=== PATIENT | female | born 1990 | race Caucasian/White ===

== ENCOUNTER 2020-01-12 14:15 | Emergency (ER) | payer OTHER ==
[2020-01-12 14:28] VITALS: BP 101/59; BMI 26.0
--- NOTE | 2020-01-12 14:35 | PDOC ---
Rapid Medical Evaluation Chief Complaint: Labor Assessment Time Seen by Provider: 01/12/20 14:30 Medical Evaluation: Allergies Allergy/AdvReac Type Severity Reaction Status Date / Time No Known Allergies Allergy Verified 01/12/20 14:21 Vital Signs Temp Pulse Resp BP Pulse Ox 98.5 F 88 16 101/59 L 99 01/12/20 14:22 01/12/20 14:22 01/12/20 14:22 01/12/20 14:22 01/12/20 14:22 01/12/20 14:34 The patient is a 29-year-old female G1, P0, currently 27 weeks , presents to the ER for clear fluid coming from the vagina. She states this started today. She states that this is her first and has been uncomplicated until now. Denies abdominal pain and cramping. 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 Doran with [facility]. Exam: Defer vaginal exam to L&D, no acute distress Plan: Send to L&D for monitoring and possible PROM Discharge Disposition - Diagnosis Vaginal discharge during in third trimester - Referrals - Patient Instructions - Post Discharge Activity
[2020-01-12 15:59] VITALS: PULSE 83; TEMP 98.4
--- NOTE | 2020-01-12 16:24 | PD.OB.PROG ---
Past Medical History - Primary Care Physician Documenting Provider Type: Attending - Admission Chief Complaint: Leakge of Fluid History of Present Illness: 29yo @ 27+wks here for leakage of fluid x 1. Patient urinated last night and upon standing from the toilet, noticed a continued trickle of fluid. None since. No bleeding. No discharge. No cramping. +FM Did not come in before, called her doctor's office this morning and advised to come to the L&D for evaluation [facility], next visit 01/21 uncomplicated per pt History Source: Patient Limitations to Obtaining History: Language Barrier Patient Type: New - Nursing Documentation Maternal Triage Index: Maternal Triage Index ( Priority 2, Urgent MFTI) Maternal Triage Index ( Priority 2, Urgent MFTI) Nursing Documentation Reviewed: Yes - Past Medical History PROTOZOOLOGY TEACHER: Denies/None Cardio/Vascular: Denies/None Pulmonary: Denies/None Gastrointestinal: Denies/None Hepatobiliary: Denies/None Renal/: Denies/None Reproductive: Denies/None ...: 1 ...Para: 0 ...Term: 0 ...: 0 ...Spon : 0 ...Induced : 0 ...Living Children: 0 ... Weeks Gestation by Dates: 27.3 ...EDC by Dates: 04/09/20 Heme/Onc: Denies/None - Past Surgical History Past Surgical History: Yes: None - Smoking History Smoking history: Never smoked - Alcohol/Substance Use Hx Alcohol Use: No History of Substance Use: reports: None - Social History Usual Living Arrangement: Alone Do you think of yourself as: Straight/Heterosexual ADL: Independent History of Recent Travel: No Review of Systems - Review of Systems Gastrointestinal: reports: No Symptoms Genitourinary: reports: No Symptoms Physical Exam - Obstetrical Vital Signs: Vital Signs Temperature 98.4 F 01/12/20 15:44 Pulse Rate 83 01/12/20 15:44 Respiratory Rate 20 01/12/20 15:44 Blood Pressure 101/59 L 01/12/20 14:22 O2 Sat by Pulse Oximetry (%) 99 01/12/20 14:22 - Abdominal Exam/OB Number of Fetuses: Single Contractions: No Monitor Mode: External Heart Rate Location: [facility] Category: I (Reactive for GA FHT) Accelerations: Non-Uniform Decelerations: None - Vaginal Exam/OB Vaginal Exam Deferred: Yes Vaginal Bleeding: No Speculum Exam: Yes (no fluid noted; nitrazine negative) Dilatation (cm): 0 Effacement (%): 0 Nitrazine Test: Negative Station: -3 - Physical Exam Edema: No Assessment/Plan 29yo @ 27+wks here with LOF No evidence of PPROM No evidence of PTL Reassuring FHT D/C to home Gabby Valenzuela MD
[2020-01-15 11:38] LABS: POC NITRAZINE NEG
== END 2020-01-12 16:30 | disposition home or self-care (01) ==
LOC: JER 14:15
DX: O34.63 Maternal care for abnormality of vagina, third trimester (principal)
CPT/HCPCS: 83986-QW; 99284-25

== ENCOUNTER 2020-04-17 08:05 | Inpatient (IN) | payer OTHER ==
[~2020-04-17 08:05] MED LIST: AMPICILLIN - 2 GM in SODIUM CHLORIDE 100 ML IVPB ONE; DINOPROSTONE 10 MG VAGINAL SUPPOSITORY VG ONE
[2020-04-17 09:09] LABS: BASO % 0.4 % (0-2.0); EOS % 1.1 % (0-4.5); HEMATOCRIT 35.3 % (32.4-45.2); HEMOGLOBIN 12.1 GM/dL (10.7-15.3); LYMPH % 26.8 % (8-40); MCH 31.8 pg (25.7-33.7); MCHC 34.4 g/dl (32.0-36.0); MEAN CELL VOLUME 92.3 fl (80-96); MONO % 8.4 % (3.8-10.2); NEUT % 63.3 % (42.8-82.8); PLATELET COUNT 198 K/MM3 (134-434); RBC 3.83 M/mm3 (3.60-5.2); RDW 12.9 % (11.6-15.6)
[2020-04-17 09:18] LABS: INR 0.94 (0.83-1.09); PROTHROMBIN TIME (PATIENT) 11.6 SEC (9.7-13.0)
[2020-04-17 09:21] LABS: ACTIVATED PTT 27.8 SECONDS (25.2-36.5)
[2020-04-17 09:40] LABS: BLOOD UREA NITROGEN 10.9 mg/dL (7-18); CALCIUM 9.1 mg/dL (8.5-10.1)
[2020-04-17 09:44] LABS: CREATININE 0.7 mg/dL (0.55-1.3)
[2020-04-17 10:44] VITALS: BMI 36.0
[2020-04-17] MEDS: ELECTROLYTE-148 SOLN 1,000 ML IV SCH (11:00)
[2020-04-17] MEDS ORDERED: AMPICILLIN SODIUM 2 GM VIAL ONE (11:06)
[2020-04-17] MEDS: AMPICILLIN - 1 GM in SODIUM CHLORIDE 100 ML IVPB SCH ×5 (12:00→22:55)
[2020-04-17] MEDS ORDERED: ELECTROLYTE-148 SOLN 1,000 ML IV SCH (13:15)
[2020-04-17] MEDS ORDERED: AMPICILLIN SODIUM 1 GM VIAL ONE ×3 (15:00→22:53)
[2020-04-17] MEDS ORDERED: PROMETHAZINE HCL 25 MG/1 ML VIAL ONE (15:47)
[2020-04-17] MEDS ORDERED: BUTORPHANOL TARTRATE 2 MG/ML VIAL ONE (15:47)
[2020-04-17] MEDS ORDERED: OXYTOCIN 30 UNITS in 0.9% NS 30 UNIT/500 ML INFUS.BAG IVPB ONE (15:47)
[2020-04-17] MEDS ORDERED: PROMETHAZINE HCL 25 MG/1 ML VIAL IVPB ONE (15:57)
[2020-04-17] MEDS ORDERED: BUTORPHANOL TARTRATE 2 MG/ML VIAL IVPB ONE (15:57)
[2020-04-17] MEDS: OXYTOCIN 30 UNITS in 0.9% NS 30 UNIT/500 ML INFUS.BAG IVPB SCH (16:30)
[2020-04-17] MEDS ORDERED: PCA PUMP NR ONE (20:59)
[2020-04-17] MEDS ORDERED: FENTANYL/BUPIVACAINE/NS/PF - PCEA - 50 ML DISP.SYRIN EP ONE (20:59)
[2020-04-17] MEDS ORDERED: BUPIVACAINE HCL/PF 0.25% (2.5MG/ML) 10 ML VIAL ONE (21:12)
[2020-04-17] MEDS: FENTANYL/BUPIVACAINE/NS/PF - PCEA - 50 ML DISP.SYRIN EP SCH (21:25)
[2020-04-17] MEDS ORDERED: NALOXONE HCL 0.4 MG/ML VIAL IVPUSH PRN (21:29)
[2020-04-18] MEDS ORDERED: AMPICILLIN SODIUM 1 GM VIAL ONE (01:59)
[2020-04-18] MEDS: ELECTROLYTE-148 SOLN 1,000 ML IV SCH ×2 (02:00→08:05)
[2020-04-18] MEDS: AMPICILLIN - 1 GM in SODIUM CHLORIDE 100 ML IVPB SCH ×4 (02:05→08:00)
[2020-04-18] MEDS ORDERED: FENTANYL/BUPIVACAINE/NS/PF - PCEA - 50 ML DISP.SYRIN EP ONE (02:07)
[2020-04-18] MEDS ORDERED: CITRIC ACID/SODIUM CITRATE 30 ML UNIT-DOSE CUP PO ONE (03:42)
[2020-04-18] MEDS ORDERED: LIDO 2%/EPI 1:200000 PRESRVFRE (20 ML SDVIAL) ONE (04:28)
[2020-04-18] MEDS ORDERED: morphine SULFATE/PF 1 MG/2 ML (2cc Syringe - QUVA) ONE ×2 (04:29)
[2020-04-18] MEDS ORDERED: BENZOCAINE 20% 57 GM BOTTLE TP PRN (04:43)
[2020-04-18] MEDS ORDERED: BENZOCAINE 28 GM HEMORRHOIDAL OINTMENT TP PRN (04:43)
[2020-04-18] MEDS ORDERED: WITCH HAZEL 50% (TUCKS) 40 PAD/JAR PAD TP PRN (04:43)
[2020-04-18] MEDS ORDERED: oxyCODONE HCL 5 MG TABLET PO PRN (04:43)
[2020-04-18] MEDS ORDERED: METHYLERGONOVINE MALEATE 0.2 MG/1 ML AMP IM PRN (04:43)
[2020-04-18] MEDS ORDERED: OXYTOCIN 20 UNITS in 0.9% NS 20 UNIT/1,000 ML INFUS.BAG IV ONE (06:04)
[2020-04-18] MEDS: OXYTOCIN 20 UNITS in 0.9% NS 20 UNIT/1,000 ML INFUS.BAG IV SCH ×2 (06:05→13:26)
[2020-04-18] MEDS ORDERED: IBUPROFEN 800 MG/8 ML IJ IVPB ONE (06:54)
[2020-04-18] MEDS: IBUPROFEN 800 MG/8 ML IJ IVPB PRN ×2 (06:55→17:40)
[2020-04-18] MEDS: ACETAMINOPHEN 325 MG TABLET (FP) PO PRN (08:14)
[2020-04-18 08:28] LABS: POC NITRAZINE POS
[2020-04-18] MEDS: PRENATAL VITAMINS W/ FOLIC ACID TABLET (FP) PO SCH (13:20)
[2020-04-18] MEDS: FERROUS SO4 325 MG TABLET (FP) PO SCH ×2 (13:25→22:36)
[2020-04-18] MEDS: SIMETHICONE 80 MG TAB.CHEW (FP) PO PRN (17:41)
[2020-04-19] MEDS: SIMETHICONE 80 MG TAB.CHEW (FP) PO PRN ×3 (04:33→21:03)
[2020-04-19] MEDS: ACETAMINOPHEN 325 MG TABLET (FP) PO PRN ×3 (04:33→21:05)
[2020-04-19] MEDS ORDERED: BISACODYL 10 MG SUPP.RECT RC PRN (04:43)
[2020-04-19 08:35] LABS: BASO % 0.2 % (0-2.0); EOS % 0.1 % (0-4.5); HEMATOCRIT 28.7 % (32.4-45.2); HEMOGLOBIN 9.7 GM/dL (10.7-15.3); MCH 31.8 pg (25.7-33.7); MCHC 33.9 g/dl (32.0-36.0); MEAN CELL VOLUME 93.8 fl (80-96); MEAN PLT VOLUME 9.2 fl (7.5-11.1); NEUT % 83.7 % (42.8-82.8); PLATELET COUNT 155 K/MM3 (134-434); RBC 3.07 M/mm3 (3.60-5.2); RDW 12.9 % (11.6-15.6); WHITE BLOOD COUNT 15.6 K/mm3 (4.0-10.0)
[2020-04-19] MEDS: IBUPROFEN 600 MG TABLET (FP) PO PRN ×2 (09:10→21:04)
[2020-04-19] MEDS: FERROUS SO4 325 MG TABLET (FP) PO SCH ×2 (12:39→21:03)
[2020-04-19] MEDS: PRENATAL VITAMINS W/ FOLIC ACID TABLET (FP) PO SCH (12:39)
[2020-04-19] MEDS: OXYTOCIN 30 UNITS in 0.9% NS 30 UNIT/500 ML INFUS.BAG IVPB SCH (19:07)
[2020-04-19] MEDS: OXYTOCIN 20 UNITS in 0.9% NS 20 UNIT/1,000 ML INFUS.BAG IV SCH (19:07)
[2020-04-19] MEDS: FENTANYL/BUPIVACAINE/NS/PF - PCEA - 50 ML DISP.SYRIN EP SCH (19:07)
[2020-04-19] MEDS: ELECTROLYTE-148 SOLN 1,000 ML IV SCH (19:08)
[2020-04-20] MEDS: IBUPROFEN 600 MG TABLET (FP) PO PRN (08:19)
[2020-04-20] MEDS: FERROUS SO4 325 MG TABLET (FP) PO SCH ×2 (08:20→09:05)
[2020-04-20] MEDS: PRENATAL VITAMINS W/ FOLIC ACID TABLET (FP) PO SCH ×2 (08:20→09:05)
[2020-04-20] MEDS: ACETAMINOPHEN 325 MG TABLET (FP) PO PRN (08:20)
[2020-04-20 09:02] VITALS: BP 116/67; PULSE 76; TEMP 98.5
== END 2020-04-20 13:15 | disposition home or self-care (01) | DRG 540 ==
LOC: JLDR 08:05 → J3W 04-18 08:01
PROVIDERS: ADMIT Obstetrics & Gynecology; ATTEND Obstetrics & Gynecology
PROC: 3E0P7VZ Introduction of Hormone into Female Reproductive, Via Natural or Artificial Opening (ICD-10-PCS; 2020-04-17)
PROC: 10907ZC Drainage of Amniotic Fluid, Therapeutic from Products of Conception, Via Natural or Artificial Opening (ICD-10-PCS; 2020-04-17)
PROC: 10D00Z1 Extraction of Products of Conception, Low, Open Approach (ICD-10-PCS; principal; 2020-04-18)
DX: O48.0 Post-term pregnancy (principal); O77.9 Labor and delivery complicated by fetal stress, unspecified; O90.81 Anemia of the puerperium; D64.9 Anemia, unspecified; O99.824 Streptococcus B carrier state complicating childbirth; Z3A.41 41 weeks gestation of pregnancy; Z37.0 Single live birth
CPT/HCPCS: 36415; 80048; 83986-QW; 85025; 85610; 85730; 86780; 86850; 86900; 86901; 88307-TC

== ENCOUNTER 2022-02-20 08:57 | Inpatient (IN) | payer OTHER ==
[2022-02-20] MEDS ORDERED: CITRIC ACID/SODIUM CITRATE 30 ML UNIT-DOSE CUP PO ONE (09:42)
[2022-02-20] MEDS: ELECTROLYTE-148 SOLN 1,000 ML IV SCH (10:00)
[2022-02-20 10:18] VITALS: BMI 28.3
[2022-02-20] MEDS ORDERED: morphine SULFATE/PF 1 MG/2 ML (2cc Syringe - QUVA) ONE (10:57)
[2022-02-20] MEDS ORDERED: morphine SULFATE/PF 1 MG/2 ML (2cc Syringe - QUVA) SPIN ONE (11:09)
[2022-02-20] MEDS ORDERED: KETAMINE HCL 500 MG/10 ML VIAL ONE (11:21)
[2022-02-20] MEDS ORDERED: PROPOFOL 20 ML ONE ×2 (11:22→12:02)
[2022-02-20] MEDS ORDERED: MIDAZOLAM HCL 2 MG/2 ML SINGLE DOSE VIAL ONE (11:39)
[2022-02-20] MEDS ORDERED: ACETAMINOPHEN 325 MG TABLET (FP) PO PRN (12:23)
[2022-02-20] MEDS ORDERED: ONDANSETRON 4 MG/2 ML VIAL IVPUSH PRN (12:23)
[2022-02-20] MEDS ORDERED: HYDROmorphone *PCA* 10MG/50ML DISP.SYRIN PCA SCH (12:30)
[2022-02-20] MEDS ORDERED: OXYTOCIN 20 UNITS in 0.9% NS 20 UNIT/1,000 ML INFUS.BAG IV ONE (12:42)
[2022-02-20] MEDS ORDERED: HYDROmorphone *PCA* 10MG/50ML DISP.SYRIN ONE (12:54)
[2022-02-20] MEDS ORDERED: ACETAMINOPHEN INJECTION 100 ML IVPB ONE (13:18)
[2022-02-20] MEDS ORDERED: ACETAMINOPHEN 1000 MG/100 ML BAG IVPB ONE (13:47)
[2022-02-21] MEDS: ELECTROLYTE-148 SOLN 1,000 ML IV SCH ×2 (03:50→21:36)
[2022-02-21] MEDS ORDERED: oxyCODONE HCL 5 MG TABLET PO PRN ×2 (11:19)
[2022-02-21] MEDS ORDERED: ACETAMINOPHEN 1000 MG/100 ML BAG IVPB PRN (14:00)
[2022-02-21] MEDS: IBUPROFEN 600 MG TABLET (FP) PO PRN (20:48)
[2022-02-21] MEDS: SENNOSIDES 8.6MG TABLET (FP) PO SCH (21:35)
[2022-02-22] MEDS: IBUPROFEN 600 MG TABLET (FP) PO PRN (03:40)
[2022-02-22] MEDS: SENNOSIDES 8.6MG TABLET (FP) PO SCH (11:07)
[2022-02-22 11:56] VITALS: BP 112/73; PULSE 87; RESP 16; TEMP 98.7
== END 2022-02-22 12:08 | disposition home or self-care (01) | DRG 540 ==
LOC: JLDR 08:57 → J3W 14:30
PROVIDERS: ADMIT Obstetrics & Gynecology; ATTEND Obstetrics & Gynecology
PROC: 10D00Z1 Extraction of Products of Conception, Low, Open Approach (ICD-10-PCS; principal; 2022-02-20)
DX: O82 Encounter for cesarean delivery without indication (principal); O69.81X0 Labor and delivery complicated by cord around neck, without compression, not applicable or unspecified; Z3A.40 40 weeks gestation of pregnancy; Z37.0 Single live birth
CPT/HCPCS: 36415; 80053; 85025; 85610; 85730; 86780; 86850; 86900; 86901; 88307-TC; C9803-CS; U0003; U0005